=== PATIENT | male | born 1975 | race Caucasian/White ===

== ENCOUNTER 2022-04-04 10:37 | Emergency (ER) | payer BC, SELFPAY ==
[2022-04-04 10:40] VITALS: BP 143/90; PULSE 69; RESP 18; TEMP 36.5; O2SAT 97; BMI 28.7
--- NOTE | 2022-04-04 10:58 | EKG12_ITS ---
Test Reason : ABDOMINAL PAIN Blood Pressure : / mmHG Vent. Rate : 063 BPM Atrial Rate : 063 BPM P-R Int : 158 ms QRS Dur : 082 ms QT Int : 410 ms P-R-T Axes : 037 047 039 degrees QTc Int : 419 ms Normal sinus rhythm Nonspecific T wave abnormality Abnormal ECG Confirmed by ANGELINA NEVAREZ, ANILA ([id number]), health editor AMARA ABILEY ([id number]) on 04/05/2022 9:26:37 AM Referred By: Confirmed By:ANILA ALFARO MD
--- NOTE | 2022-04-04 10:59 | EX.ED.DYSGE1 ---
HPI History of Present Illness Chief Complaint: Abd Pain Informant: patient Onset/Context/Timing Onset: Days (5 days) Timing: Continuous Current Severity: Moderate Maximum Severity: Moderate Narrative Narrative: Patient presents with bandlike pain across the upper abdomen/lower ribs. He states pain started late Thursday evening. He was seen at the emergency room in [place] on Thursday. He states his pain started in the epigastric area, up through his chest and into his jaw. He states that his cardiac work-up was unremarkable. The reportedly was a small elevation in his lipase. He had an ultrasound of the right upper quadrant that showed some inflammation. He was started on pantoprazole. He followed up with Dr. Wren this morning and due to continued pain was sent to the emergency room due to concern for pancreatitis. Patient denies having fever or chills. He will occasionally have pain radiating into his back. He denies change in pain with p.o. diet. PFSH PFSH Medical History no medical history no medical history Home Medications pantoprazole 20 mg tablet,delayed release 20 mg PO DAILY 04/04/22 [History Last Taken Unknown] sucralfate 1 gram tablet (Carafate) 1 g PO BID #30 tabs 04/04/22 [Rx Last Taken Unknown] Allergy/AdvReac Type Severity Reaction Status Date / Time bee venom protein (honey bee) AdvReac Other Verified 04/04/22 10:39 Surgical History no surgical history Social History Smoking Status: Never smoker ROS ROS ED Constitutional Constitutional ED: Denies chills or fever(s) Eyes Eyes: Denies change in vision or discharge from eye(s) ENT ENT ED: Denies discharge from eye(s), rhinorrhea or sore throat Cardiovascular Cardiovascular: Denies chest pain or palpitations Respiratory/Chest Respiratory/Chest: Denies cough or dyspnea Gastrointestinal Gastrointestinal: Reports abdominal pain; Denies diarrhea, nausea or vomiting Genitourinary Genitourinary ED: Denies dysuria Musculoskeletal Musculoskeletal: Denies back pain or extremity pain Integumentary Denies Abrasions or rash Neurologic Neurologic: Denies headache(s) or weakness Psychiatric Psychiatric: Denies anxiety or depression Allergic/Immunologic Allergic/Immunologic ED: Denies lip swelling or urticaria EXAM Physical Exam Const Vital Signs: 04/04/22 10:40 04/04/22 12:38 04/04/22 13:49 Temperature 97.7 F L Temperature Source Temporal Pulse Rate 69 56 L 54 L Respiratory Rate 18 18 14 Blood Pressure 143/90 H 119/81 H 116/77 Blood Pressure Mean 107 93 90 Pulse Ox 97 97 98 Oxygen Delivery Method Room Air Room Air Room Air Positive well nourished and well developed General Appearance ED: well developed HEENT Reports normocephalic and head/scalp atraumatic Eyes PERRL and EOMs intact bilaterally Neck supple Chest Wall inspection of chest normal and palpation of chest normal Resp normal respiratory effort and clear to auscultation bilaterally Cardio regular rate and regular rhythm GI GI Narrative: Hypoactive bowel sounds. Tenderness to palpation across the upper abdomen. No guarding or rebound. Palpation: soft Extremity normal to inspection Neuro oriented x3 and no sensory deficits noted Sensorium / Orientation: alert Motor Exam: strength 5/5 throughout Psych mental status grossly normal Skin no rashes or lesions noted MDM MDM MDM Narrative Medical decision making narrative: Patient given morphine and Zofran for pain and nausea control. IV fluids given. EKG and lab work ordered. Lab Data Attestation: I reviewed the patient's lab results. Labs: Laboratory Results - last 24 hr 04/04/22 04/04/22 10:53 10:53 WBC 4.7 RBC 5.52 Hgb 17.0 H Hct 47.3 MCV 85.7 MCH 30.8 MCHC 35.9 RDW Std Deviation 38.3 RDW Coeff of Natalia 12.3 Plt Count 166 MPV 11.9 Immature Gran % (Auto) 0.400 Neut % (Auto) 58.0 Lymph % (Auto) 29.4 [place] % (Auto) 8.1 Eos % (Auto) 3.0 Baso % (Auto) 1.1 H Absolute Neuts (auto) 2.7 Absolute Lymphs (auto) 1.38 Nucleated RBC % 0 Sodium 139 Potassium 3.7 Chloride 106 Carbon Dioxide 28.0 Anion Gap 5 BUN 12 Creatinine 1.27 Estim Creat Clear Calc 79.77 Est GFR (MDRD) Af Amer 78 Est GFR (MDRD) Non-Af 65 BUN/Creatinine Ratio 9.4 L Glucose 104 Calcium 8.8 Total Bilirubin 0.80 Direct Bilirubin 0.15 AST 19 ALT 39 Alkaline Phosphatase 66 Troponin I High Sens 15 Total Protein 7.3 Albumin 4.0 Globulin 3.3 Lipase 145 Radiography Diagnostic Testing: Clinical Impression(s) from Imaging Studies Abdomen/Pelvis CT 04/04/22 11:49 IMPRESSION: Findings suggestive of bibasilar atelectasis. Calcified granuloma in the right lower lobe. Electronically Signed: Joseluis Magana MD at 14:04 EDT , EKG Initial EKG: Attestation: I personally reviewed and interpreted this EKG as follows: Interpretation: Sinus Rhythm (Sinus at 63 with no acute ischemia.) Treatment and Re-Evaluation Narrative: CBC unremarkable other than hemoglobin concentrated at 17. Chemistry studies normal. LFTs and lipase normal. Troponin normal. CT scan of the abdomen and pelvis with p.o. and IV contrast obtained. This is also unremarkable. There is a calcified granuloma noted in the right lower lobe of the lung. Test results discussed with patient and at bedside. Given these abnormal findings and location of pain I am suspicious that he has gastritis or possibly an ulcer. He is already on pantoprazole. I will add Carafate and refer him to GI. Return instructions provided. Discharge Plan Triage Chief Complaint: Abd Pain ED Provider: Arielle Peralta Dx/Rx/DC Orders Clinical Impression: Gastritis, Epigastric pain Instructions: ED Gastritis (Adult), ED Epigastric Pain Uncertain Cause Prescriptions: New sucralfate [Carafate] 1 gram tablet 1 g PO BID Qty: 30 0RF No Action pantoprazole 20 mg tablet,delayed release (DR/EC) 20 mg PO DAILY Primary Care Provider: Chance Wren Referrals: Juan Manuel Dennis DO [Med Staff - Active Staff] - 1-2 Weeks Chance Wren MD [Primary Care Provider] - Disposition Disposition: Home, Self Care
[2022-04-04] MEDS: Morphine 4 MG/ML Syringe IV (11:04)
[2022-04-04] MEDS: Ondansetron 4 MG/2 ML Vial IV (11:04)
[2022-04-04] MEDS: 0.9% Normal Saline 1,000 ML 150 ML IV (11:14)
[2022-04-04 11:25] LABS: Absolute Lymphocyte Count 1.38 X10^3/uL (0.83-4.51); Absolute Neutrophil Count 2.7 X10^3/uL (2.0-7.7); Basophil# 0.05 X10^3/uL; Basophil% 1.1 % (0-1); Eosinophil# 0.14 X10^3/uL; Hematocrit 47.3 % (40-54); Lymphocyte # 1.38 X10^3/ul (0.83-4.51); Lymphocyte % 29.4 % (19-41); Mean Corp Hgb Conc 35.9 g/dL (32-36); Mean Corpuscular Hgb 30.8 pg (27.0-32.0); Mean Corpuscular Volume 85.7 fL (80-94); Mean Platelet Vol. 11.9 fl (6.2-12.0); Monocyte# 0.38 X10^3/uL; Monocyte% 8.1 % (0-10); NRBC Flagged by Analyzer 0 % (0-5); Neutrophil # 2.73 X10^3/uL (2.7-7.7); Platelet Count 166 K/mm3 (150-450); RBC Distribution Width CV 12.3 % (11.6-14.6); RBC Distribution Width SD 38.3 fl (35.1-43.9); Red Blood Count 5.52 M/mm3 (4.6-6.2); White Blood Count 4.7 K/mm3 (4.4-11.0)
[2022-04-04 11:33] LABS: AST(SGOT) 19 U/L (15-37); Alanine Aminotransfer ALT/SGPT 39 U/L (16-61); Alkaline Phosphatase 66 U/L (45-117); Anion Gap 5 (5-15); BUN 12 mg/dL (7-18); BUN/Creat Ratio 9.4 RATIO (10-20); Bilirubin, Direct 0.15 mg/dL (0.00-0.30); Calcium,Total 8.8 mg/dL (8.5-10.1); Chloride 106 mmol/L (98-107); Creatinine, Serum 1.27 mg/dL (0.70-1.30); EST Glomerular Filtration Rate 65 mL/min (>60); Est Glom Filt Rate - Afr Amer 78 mL/min (>60); Estimated Creatinine Clearance 79.77 ml/min; Globulin 3.3 g/dL (2.2-4.2); Glucose 104 mg/dL (74-106); Lipase 145 U/L (73-393); Potassium 3.7 mmol/L (3.5-5.1); Protein, Total 7.3 g/dL (6.4-8.2); Sodium Level 139 mmol/L (136-145); Troponin-I HS 15 pg/mL (3.0-78.0)
--- NOTE | 2022-04-04 11:49 | CT_ITS ---
STUDY: CT ABDOMEN AND PELVIS WITH CONTRAST REASON FOR EXAM: Male, 46 years old. Upper abdominal pain -- IV PO Contrast RADIATION DOSAGE (If Supplied By Facility): CTDIvol = ( 14.39 ) mGy, DLP = ( 892.92 ) mGycm TECHNIQUE: Transaxial images were obtained from the dome of the diaphragm to the symphysis pubis without oral contrast. IV 100mL Isovue-300 was administered. Sagittal and coronal images were reconstructed. Individualized dose optimization techniques were used for this CT. COMPARISON: None. FINDINGS: There is a 1.5 cm calcified granuloma in the peripheral lateral aspect of the right lower lobe. Increased markings at the lung bases suggestive of bibasilar atelectasis. The visualized portions of the heart are within normal limits. There is decreased attenuation of the liver consistent with steatosis. Normal gallbladder and extrahepatic biliary system. Normal spleen. Normal pancreas. Normal bilateral adrenal glands. Normal right kidney. Normal left kidney. Normal visualized stomach. Normal small intestine. Normal colon. The appendix is visualized and appears normal. Normal abdominal aorta. Normal inferior vena cava. Normal retroperitoneum. Normal urinary bladder. There are prostatic calcifications. There is a small umbilical hernia containing fat. Straightening of the normal lumbar lordosis. CT/Abdomen/Pelvis WITH Contrast IMPRESSION: Findings suggestive of bibasilar atelectasis. Calcified granuloma in the right lower lobe. Electronically Signed: Joseluis Magana MD at 14:04 EDT ,
[2022-04-04 12:38] VITALS: BP 119/81; PULSE 56; RESP 18; O2SAT 97
[2022-04-04 13:49] VITALS: BP 116/77; PULSE 54; RESP 14; O2SAT 98
[2022-04-04 14:14] VITALS: BP 121/80; PULSE 54; RESP 15; O2SAT 100
== END 2022-04-04 14:24 | disposition home or self-care (01) ==
PROVIDERS: Emergency Provider Emergency Medicine; PCP Internal Medicine; Visit Provider Emergency Medicine
DX: K29.70 Gastritis, unspecified, without bleeding (principal); R10.13 Epigastric pain; Z79.899 Other long term (current) drug therapy
CPT/HCPCS: 74177; 80048; 80076; 83690; 84484; 85025; 93005; 96374; 96375; 99284; J7030; Q9967; A4216; J2405

== ENCOUNTER → 2022-05-05 | Outpatient (CLI) | payer BC, SELFPAY ==
--- NOTE | 2022-05-05 09:33 | US_ITS ---
STUDY: ABDOMINAL ULTRASOUND - ELASTOGRAPHY REASON FOR VISIT: Male, 46 years old. Fatty infiltration of the liver. TECHNIQUE: Liver stiffness measurements were obtained on a SolFocus RS 85 ultrasound machine using a CA 1-7 probe following the SRU guidelines. 3 measurements were obtained using a 2-D-SWE method. The IQR/M was 11% suggesting a quality data set. TECHNICAL QUALITY: Adequate. COMPARISON: Comparison is made with prior study done earlier in the day. FINDINGS: Liver: Fatty infiltration of the liver. Median liver stiffness measured 12 kPa. US/Elastography Parenchyma/Organ IMPRESSION: Liver stiffness measures 12 kPa compatible with F2-F3 (Mild to moderate liver fibrosis) Metavir score. Electronically Signed: Joseluis Magana MD at 15:27 EST ,
--- NOTE | 2022-05-05 09:33 | US_ITS ---
STUDY: ABDOMINAL ULTRASOUND - RIGHT UPPER QUADRANT REASON FOR VISIT: Male, 46 years old fatty liver, elastography TECHNIQUE: Ultrasound evaluation of the right upper quadrant was performed with real-time and static subramanian-scale imaging. TECHNICAL QUALITY: Adequate. COMPARISON: None. FINDINGS: Liver: The liver measures 16.8 cm. There is increased echogenicity consistent with fatty infiltration. Focal area of fatty sparing is seen in the region of the gallbladder fossa. The bile ducts are within normal limits. There is hepatic color flow. The direction of portal flow is hepatopetal. There is no demonstrated mass lesion. Gallbladder: Normal distended gallbladder. The gallbladder wall measures 1.5 mm. There is a negative sonographic Boyer''s sign. There is no pericholecystic fluid. There are no gallstones. Common Bile Duct (C.B.D.): The common bile duct measures 2.1 mm. Pancreas: Normal size of the head, body and tail of the pancreas. There is increased echogenicity of the pancreas. There is no demonstrated pancreatic mass or cyst. Right Kidney: Normal size of the right kidney. The right kidney measures 11.1 cm x 5.6 x 6.7 cm. Normal renal cortex. The right cortex measures 1.7 cm. There is a 7 mm x 7 mm x 5 mm cyst in the lateral midportion of the kidney. There is no right hydronephrosis. US/Abdomen Limited IMPRESSION: Fatty infiltration of the liver with focal fatty sparing in the region of the pericholecystic region. Electronically Signed: Joseluis Magana MD at 15:25 EST ,
== END | disposition home or self-care (01) ==
LOC: US 09:33
PROVIDERS: PCP Internal Medicine; Visit Provider Nurse Practitioner Adult Health
DX: K76.0 Fatty (change of) liver, not elsewhere classified (principal)
CPT/HCPCS: 76705; 76981

== ENCOUNTER 2022-06-17 12:39 | Day surgery (SDC) | payer BC, SELFPAY ==
[2022-06-17] VITALS (7 sets, daily range): BP systolic 107–144; BP diastolic 71–92; PULSE 65–74; RESP 16–18; TEMP 35.9–36.3; O2SAT 97–98; BMI 29.1
[2022-06-17] MEDS: Lactated Ringers 1,000 ML 15 ML IV (13:23)
--- NOTE | 2022-06-17 14:00 | EGD_PTH ---
PATIENT: MAURY ARRIAGA LOC: EN U#:[id number] AGE/SX: 46/M ROOM: RE06/17/[address]: Dr. Juan Manuel Dennis DO : 1975 BED: DIS: 06/17/2022 SPEC #: [id number] RECD: 06/17/22 16:43 STATUS: ADE MARY #: [id number] HAZEL: 06/17/22 14:[address]: Juan Manuel Dennis DEPT: SURGICAL PATHOLOGY RECD BY: Gay Hanks ENTERED: 06/18/22 07:27 SP TYPE: EGD BIOPSY OT DR: Chance Wren MD Tissues: A - Duodenum, NOS B - Pyloric sphincter C - Esophagus, NOS D - Gastric mucous membrane E - Ileum, NOS F - COLON BIOPSY Procedures: Special Stain Group II Surgery Specimen Level IV Alcian Blue/PAS (control) HEADER OPERATION: Colonoscopy, EGD ([facility]) with biopsies PRE-OP DIAGNOSIS: Epigastric pain, fatty liver TISSUE SUBMITTED: A ? Duodenum biopsy, B ? Pyloric sphincter biopsy, C ? Distal esophagus biopsy, D ? Gastric body biopsy, E ? Terminal ileum biopsy, F ? Random colon biopsy MICROSCOPIC DIAGNOSIS A. Duodenum, biopsy: No pathologic change. B. Pyloric sphincter, biopsy: Fragments of benign gastric mucosa with minimal chronic inflammation. C. Distal esophagus, biopsy: Gastric mucosa with chronic inflammation. No evidence of goblet cell metaplasia. See comment. D. Gastric body, biopsy: Mild chronic inflammation. See comment. E. Terminal ileum, biopsy: No pathologic change. F. Colon, random biopsy: No pathologic change. AM:sarah 06/19/2022 COMMENT C. Alcian blue/PAS stain with matched control supports the above diagnosis. D. The results of immunohistochemistry for Helicobacter pylori will be reported separately ([id number]). MICROSCOPIC DESCRIPTION Slides are reviewed. GROSS DESCRIPTION A - Received in fixative is one container labeled with the patient's name and designated duodenum biopsy. The specimen consists of two irregular fragments of light tabares soft tissue that in aggregate measure 0.5 x 0.3 x 0.1 cm. The specimen is totally submitted in one cassette. B - Received in fixative is one container labeled with the patient's name and designated pyloric sphincter biopsy. The specimen consists of two irregular fragments of light tabares soft tissue that in aggregate measure 0.5 x 0.2 x 0.1 cm. The specimen is totally submitted in one cassette. C - Received in fixative is one container labeled with the patient's name and designated distal esophagus biopsy. The specimen consists of one irregular fragment of light tabares soft tissue that measures 0.3 x 0.3 x 0.1 cm. The specimen is totally submitted in one cassette. D - Received in fixative is one container labeled with the patient's name and designated gastric body biopsy. The specimen consists of two irregular fragments of light tabares soft tissue that in aggregate measure 0.6 x 0.2 x 0.1 cm. The specimen is totally submitted in one cassette. E - Received in fixative is one container labeled with the patient's name and designated terminal ileum biopsy. The specimen consists of multiple irregular fragments of light tabares soft tissue that in aggregate measure 1 x 0.5 x 0.1 cm. The specimen is totally submitted in one cassette. F - Received in fixative is one container labeled with the patient's name and designated random colon biopsy. The specimen consists of multiple irregular fragments of light tabares soft tissue that in aggregate measure 1.5 x 0.5 x 0.1 cm. The specimen is totally submitted in one cassette. / AM:sarah 06/18/2022 TC:3 CPT: 61339 x6, 71810
--- NOTE | 2022-06-17 14:00 | IMM_PTH ---
PATIENT: MAURY ARRIAGA LOC: EN U#:[id number] AGE/SX: 46/M ROOM: RE06/17/[address]: Dr. Juan Manuel Dennis DO : 1975 BED: DIS: 06/17/2022 SPEC #: [id number] RECD: 06/18/22 09:28 STATUS: ADE RELorenzo #: [id number] HAZEL: 06/17/22 14:[address]: Juan Manuel Dennis DEPT: IMMUNOHISTOCHEMISTRY RECD BY: Aminata Lange ENTERED: 06/18/22 09:29 SP TYPE: IMMUNO OTHR DR: Chance Wren MD Tissues: D - Stomach, NOS Procedures: H Pylori (initial) PHYSICIAN & INSTITUTION [place] [id number] SPECIMEN INFORMATION: Tissue Source: D ? Gastric body biopsy Clinical Info: Epigastric pain, fatty liver Specimen Number: [id number] CPT code: 78923 METHODOLOGY: Deparaffinized sections of prefer/formalin-fixed tissue or PAP/DQ stained slides are incubated with monoclonal/polyclonal antibodies/oligonucleotide probes. Localization is made via biotin free immunoperoxidase method. Appropriate controls are performed and reacted as expected. Results on target cell population are indicated in the following table: RESULTS: ANTIBODY / CLONE RESULT Block D H Pylori (polyclonal) negative These tests were developed and their performance characteristics determined by [facility]. They may not have been cleared or approved by the U.S. Food and Drug Administration. The FDA has determined that such clearance or approval is not necessary. The above immunohistochemical/dualISH markers are ordered and reviewed by the Pathologist. INTERPRETATION: D. Gastric body, biopsy: Negative for Helicobacter pylori organisms. AM:sarah 06/19/2022
--- NOTE | 2022-06-17 14:17 | PCM.HP.BLA ---
History and Physical Date of Admission: 06/17/22 46 M who presents to the office today for appt to establish after being seen in ED for epigastric pain. He went to [facility] ED on 04/04/22 for upper abdominal pain. He had been seen on 03/31/22 for the epigastric pain that radiated to the chest and jaw at [facility] ED. They ruled out cardiac issue. At [facility] he had RUQ US which showed fatty liver; labs: plts 139 low, lipase slightly high. He was started on pantoprazole then. On 04/04/22 he had f/u with PCP Dr Wren, since he had ongoing abd pain that radiated through to the back he was referred to ED for possible pancreatitis. At [facility] he had CT abd which was unremarkable, lipase was normal. They added sucralfate. He hasn't had recurrence of the pain since then. Hx of mild acid reflux, usually only triggered by spicy food, and resolved with TUMS, had never needed any stronger med for it. No nausea, vomiting, dysphagia. Bowels are regular, no diarrhea, contstipation, melena, hematochezia. Weight is stable. He gets migraines, takes prn iburofen and excedrin ROS Const Constitutional: No fatigue ENT ENT: No difficulty swallowing Gastro GI: Positive for abdominal pain, bloating, heartburn and excessive flatus; No belching, change in bowel habits, change in stool character, coffee ground emesis, constipation, cramping, diarrhea, difficulty swallowing, feeling full early, incontinent of stools, Vomiting blood/hematemesis, Blood in stool, loose stools, Black,tarry stools, nausea/dyspepsia, pain with swallowing, vomiting or other Musc Musculoskeletal: Positive for joint pain and stiffness; No back pain Skin Skin: No yellowing of the eye or itchy eyes Psych Psychiatric: No anxiety and No depression Endo Endocrine: No fatigue Aller/Imm Allergy/Immunologic: No itchy eyes Allen/Lymp Hematologic/Lymphatic: No easy bleeding or easy bruising Exam Const General: cooperative, healthy appearing and comfortable Nutritional Appearance: average body habitus Orientation: alert, awake and oriented x3 HENMT Head: normal to inspection Eyes General: appearance normal, both eyes and all related structures Resp Effort & Inspection: normal respiratory effort GI Inspection: normal to inspection Quality Reporting Tobacco Screening ([facility] 138) Smoking Status: Never smoker Assessment and Plan Assessment and Plan (1) Epigastric pain: ?Status:?Acute ?Plan: Continue pantoprazole, rx sent for 40 mg QAM, and finish the course of sucralfate Schedule EGD to eval for esophagitis, Guillaume's, hiatal hernia, gastritis, PUD Will also get screening colonoscopy (2) Fatty liver: ?Status:?Acute ?Plan: Get liver elastography, will call pt with result and any recommendations FIB-4 0.84 which excludes advanced fibrosis ? ? ? Orders: Orders Abdomen Limited Today K76.0 - Fatty (change of) liver, not elsewhere classified ? Elastography Parenchyma/Organ Today K76.0 - Fatty (change of) liver, not elsewhere classified ? Medications: New pantoprazole 40 mg? PO DAILY 90 tabs 1RF ? ? Discontinued pantoprazole ?? Discontinued Reason:? Order Changed 20 mg? PO DAILY ? ? I have examined the patient and the H&P has been reviewed. There are no clinical changes since date of exam.
--- NOTE | 2022-06-17 15:23 | OP.EGD_ITS ---
Patient Name: Oumar Tanner Procedure Date: 06/17/2022 2:48 PM Date of : 1975 Age: 46 Procedure: Upper GI endoscopy Indications: Epigastric abdominal pain Providers: Juan Manuel Dennis DO Medicines: Monitored Anesthesia Care Patient Profile: This is a 46 year old male. Refer to note in patient chart for documentation of history and physical. Patient has symptoms of acute abdominal cramping and acute epigastric abdominal pain. Complications: No immediate complications. Procedure: Pre-Anesthesia Assessment: - Prior to the procedure, a History and Physical was performed, and patient medications and allergies were reviewed. The risks and benefits of the procedure and the sedation options and risks were discussed with the patient. All questions were answered and informed consent was obtained. Patient identification and proposed procedure were verified by the physician in the pre-procedure area. Mental Status Examination: alert and oriented. Respiratory Examination: clear to auscultation. CV Examination: normal. Prophylactic Antibiotics: The patient does not require prophylactic antibiotics. Prior Anticoagulants: The patient has taken no previous anticoagulant or antiplatelet agents. ASA Grade Assessment: II - A patient with mild systemic disease. After reviewing the risks and benefits, the patient was deemed in satisfactory condition to undergo the procedure. The anesthesia plan was to use monitored anesthesia care (MAC). Immediately prior to administration of medications, the patient was re-assessed for adequacy to receive sedatives. The heart rate, respiratory rate, oxygen saturations, blood pressure, adequacy of pulmonary ventilation, and response to care were monitored throughout the procedure. The physical status of the patient was re-assessed after the procedure. After obtaining informed consent, the endoscope was passed under direct vision. Throughout the procedure, the patient's blood pressure, pulse, and oxygen saturations were monitored continuously. The pediatric colonoscope was introduced through the mouth, and advanced to the second part of duodenum. The upper GI endoscopy was accomplished without difficulty. The patient tolerated the procedure well. Scope In: 2:57:38 PM Scope Out: 3:01:18 PM Total Procedure Duration Time 0 hours 3 minutes 40 seconds Findings: The Z-line was irregular and was found 39 cm from the incisors. Biopsies were taken with a cold forceps for histology. Verification of patient identification for the specimen was done. Estimated blood loss was minimal. Patchy mild inflammation characterized by erythema was found in the gastric body. Biopsies were taken with a cold forceps for histology. Estimated blood loss: none. Patchy mildly erythematous mucosa without active bleeding and with no stigmata of bleeding was found in the duodenal bulb. Impression: - Z-line irregular, 39 cm from the incisors. Biopsied. - Gastritis. Biopsied. - Erythematous duodenopathy. Recommendation: - Discharge patient to home. - Resume previous diet. - Continue present medications. - Await pathology results. Procedure Code(s): --- Professional --- 63939, Esophagogastroduodenoscopy, flexible, transoral; with biopsy, single or multiple CPT copyright 2017 [employer]. All rights reserved. The codes documented in this report are preliminary and upon respiratory care specialist review may be revised to meet current compliance requirements. Juna Manuel Dennis DO 06/17/2022 3:22:54 PM This report has been signed electronically. Number of Addenda: 0 Note Initiated On: 06/17/2022 2:48 PM
--- NOTE | 2022-06-17 15:23 | OP.CCLET_ITS ---
06/17/2022 Chance Wren Md Re : Upper GI endoscopy procedure for Oumar Tanner Dear [place] This procedure was performed on Friday, June 17, 2022. My impressions and recommendations are as follows: Impressions : - Z-line irregular, 39 cm from the incisors. Biopsied. - Gastritis. Biopsied. - Erythematous duodenopathy. Recommendations : - Discharge patient to home. - Resume previous diet. - Continue present medications. - Await pathology results. My findings are described in the full procedure note, which is enclosed. If I can be of further assistance, please feel free to contact me at . Sincerely, Juan Manuel Dennis, 06/17/2022 3:22:54 PM This report has been signed electronically.
--- NOTE | 2022-06-17 15:26 | OP.CCLET_ITS ---
06/17/2022 Chance Wren Md Re : Colonoscopy procedure for Oumar Tanner [place] This procedure was performed on Friday, June 17, 2022. My impressions and recommendations are as follows: Impressions : - Congested mucosa in the terminal ileum. Biopsied. - Congested mucosa at the splenic flexure and at the hepatic flexure. Biopsied. Recommendations : - Discharge patient to home. - Resume previous diet. - Continue present medications. - Await pathology results. - Repeat colonoscopy in 10 years for screening purposes. My findings are described in the full procedure note, which is enclosed. If I can be of further assistance, please feel free to contact me at . Sincerely, Juan Manuel Dennis, 06/17/2022 3:25:47 PM This report has been signed electronically.
--- NOTE | 2022-06-17 15:26 | OP.COLON_ITS ---
Patient Name: Oumar Tanner Procedure Date: 06/17/2022 3:01 PM Date of : 1975 Age: 46 Procedure: Colonoscopy Indications: Screening for colorectal malignant neoplasm Providers: Juan Manuel Dennis DO Medicines: Monitored Anesthesia Care Patient Profile: This is a 46 year old male. Refer to note in patient chart for documentation of history and physical. Patient has symptoms of acute abdominal cramping and acute epigastric abdominal pain. Last Colonoscopy: none. The patient's first colonoscopy is today. Complications: No immediate complications. Procedure: Pre-Anesthesia Assessment: - Prior to the procedure, a History and Physical was performed, and patient medications and allergies were reviewed. The risks and benefits of the procedure and the sedation options and risks were discussed with the patient. All questions were answered and informed consent was obtained. Patient identification and proposed procedure were verified by the physician in the pre-procedure area. Mental Status Examination: alert and oriented. Respiratory Examination: clear to auscultation. CV Examination: normal. Prophylactic Antibiotics: The patient does not require prophylactic antibiotics. Prior Anticoagulants: The patient has taken no previous anticoagulant or antiplatelet agents. ASA Grade Assessment: II - A patient with mild systemic disease. After reviewing the risks and benefits, the patient was deemed in satisfactory condition to undergo the procedure. The anesthesia plan was to use monitored anesthesia care (MAC). Immediately prior to administration of medications, the patient was re-assessed for adequacy to receive sedatives. The heart rate, respiratory rate, oxygen saturations, blood pressure, adequacy of pulmonary ventilation, and response to care were monitored throughout the procedure. The physical status of the patient was re-assessed after the procedure. After I obtained informed consent, the scope was passed under direct vision. Throughout the procedure, the patient's blood pressure, pulse, and oxygen saturations were monitored continuously. The colonoscope was introduced through the anus and advanced to the terminal ileum. The colonoscopy was performed without difficulty. The patient tolerated the procedure well. The quality of the bowel preparation was good. Scope In: 3:00:14 PM Scope Withdrawal Time 0 hours 8 minutes 23 seconds Scope Out: 3:15:42 PM Total Procedure Duration Time 0 hours 15 minutes 28 seconds Findings: The perianal and digital rectal examinations were normal. A patchy area of the terminal ileum was congested. Biopsies were taken with a cold forceps for histology. Verification of patient identification for the specimen was done. Estimated blood loss was minimal. An area of mildly congested mucosa was found at the splenic flexure and at the hepatic flexure. Biopsies were taken with a cold forceps for histology. Verification of patient identification for the specimen was done. Estimated blood loss was minimal. Impression: - Congested mucosa in the terminal ileum. Biopsied. - Congested mucosa at the splenic flexure and at the hepatic flexure. Biopsied. Recommendation: - Discharge patient to home. - Resume previous diet. - Continue present medications. - Await pathology results. - Repeat colonoscopy in 10 years for screening purposes. Procedure Code(s): --- Professional --- 86989, Colonoscopy, flexible; with biopsy, single or multiple CPT copyright 2017 [employer]. All rights reserved. The codes documented in this report are preliminary and upon die caster review may be revised to meet current compliance requirements. Juan Manuel Dennis DO 06/17/2022 3:25:47 PM This report has been signed electronically. Number of Addenda: 0 Note Initiated On: 06/17/2022 3:01 PM
== END 2022-06-17 16:13 | disposition home or self-care (01) ==
LOC: EN 12:41 → AC 12:47
PROVIDERS: PCP Internal Medicine; Referring Provider Internal Medicine; Visit Provider Internal Medicine Gastroenterology
PROC: 0DJD8ZZ Inspection of Lower Intestinal Tract, Via Natural or Artificial Opening Endoscopic (ICD-10-PCS; CPT 45378; principal; 2022-06-17 13:55)
DX: Z12.11 Encounter for screening for malignant neoplasm of colon (principal); K29.20 Alcoholic gastritis without bleeding; K31.89 Other diseases of stomach and duodenum; K21.9 Gastro-esophageal reflux disease without esophagitis; K76.0 Fatty (change of) liver, not elsewhere classified; R10.13 Epigastric pain; Z79.899 Other long term (current) drug therapy; Z87.891 Personal history of nicotine dependence
CPT/HCPCS: 43239; 45380; 88305; 88313; 88342; J7120; J2405

== ENCOUNTER → 2022-07-01 | Outpatient (CLI) | payer BC, SELFPAY ==
[2022-07-01 10:14] LABS: Absolute Lymphocyte Count 1.66 X10^3/uL (0.83-4.51); Absolute Neutrophil Count 2.7 X10^3/uL (2.0-7.7); Basophil# 0.06 X10^3/uL; Basophil% 1.2 % (0-1); Eosinophil# 0.17 X10^3/uL; Eosinophils% 3.4 % (0-5); Hematocrit 49.4 % (40-54); Hemoglobin 17.1 g/dL (13.0-16.5); Lymphocyte # 1.66 X10^3/ul (0.83-4.51); Lymphocyte % 33.4 % (19-41); Mean Corp Hgb Conc 34.6 g/dL (32-36); Mean Corpuscular Hgb 29.9 pg (27.0-32.0); Mean Corpuscular Volume 86.4 fL (80-94); Mean Platelet Vol. 12.4 fl (6.2-12.0); Monocyte# 0.37 X10^3/uL; Monocyte% 7.4 % (0-10); NRBC Flagged by Analyzer 0 % (0-5); Neutrophil # 2.68 X10^3/uL (2.7-7.7); Platelet Count 190 K/mm3 (150-450); RBC Distribution Width CV 12.3 % (11.6-14.6); Red Blood Count 5.72 M/mm3 (4.6-6.2)
[2022-07-01 10:31] LABS: Hemoglobin A1c 5.3 % (3.8-5.6)
[2022-07-01 10:39] LABS: International Normalized Ratio 1.2; Prothrombin Time (Protime)PT. 14.5 SECONDS (11.7-14.9)
[2022-07-01 11:06] LABS: ALB/GLOB Ratio 1.2 RATIO (0.9-2.4); AST(SGOT) 23 U/L (15-37); Alanine Aminotransfer ALT/SGPT 52 U/L (16-61); Albumin, Serum 4.2 g/dL (3.2-5.0); Alkaline Phosphatase 69 U/L (45-117); Anion Gap 7 (5-15); BUN 13 mg/dL (7-18); BUN/Creat Ratio 10.1 RATIO (10-20); CRP < 2.90 mg/L (0.0-3.0); Chloride 106 mmol/L (98-107); Creatinine, Serum 1.29 mg/dL (0.70-1.30); EST Glomerular Filtration Rate 64 mL/min (>60); Est Glom Filt Rate - Afr Amer 77 mL/min (>60); Ferritin 232 ng/mL (26-388); Globulin 3.5 g/dL (2.2-4.2); Glucose 112 mg/dL (74-106); LDH 168 U/L (87-241); Potassium 3.7 mmol/L (3.5-5.1); Protein, Total 7.7 g/dL (6.4-8.2); Sodium Level 140 mmol/L (136-145)
[2022-07-01 11:20] LABS: HIV - WCH Non-Reactive (Nonreactive)
[2022-07-01 11:33] LABS: Erythrocyte Sedimentation Rate 3 mm/hr (0-20)
[2022-07-02 16:09] LABS: Anti-Centromere B Ab <0.2 AI (0.0-0.9); Anti-Chromatin <0.2 AI (0.0-0.9); Anti-Jo <0.2 AI (0.0-0.9); Anti-Scleroderma-70 AB <0.2 AI (0.0-0.9); RNP Ab 0.3 AI (0.0-0.9); SJOGREN'S Anti-SS-A test < 0.2 AI (0.0-0.9); SJOGREN'S Anti-SS-B test < 0.2 AI (0.0-0.9); Smith Ab <0.2 AI (0.0-0.9)
[2022-07-02 16:26] LABS: Anti-Mitochondrial AB <20.0 Units (0.0-20.0); Anti-dsDNA Ab <1 IU/mL (0-9)
[2022-07-03 07:08] LABS: Angiotensin Convert Enzyme 73 U/L (14-82); Cytoplasmic Ab (C-ANCA) <1:20 titer (Neg:<1:20); HEPATITIS B SURFACE AG Negative (Negative); Hep C Antibodies <0.1 s/co ratio (0.0-0.9); Hepatitis A IgM Antibody Negative (Negative); Hepatitis B Core AB IgM Negative (Negative)
[2022-07-03 18:47] LABS: AFP, Tumor Marker 13.1 ng/mL (0.0-6.9); Anti-Smooth Muscle ABS 7 Units (0-19); Copper, Serum or Plasma 104 ug/dL (69-132); Haptoglobin 103 mg/dL (23-355); Perinuclear Ab (P-ANCA) <1:20 titer (Neg:<1:20)
== END | disposition home or self-care (01) ==
LOC: LAB 09:16
PROVIDERS: PCP Internal Medicine; Referring Provider Nurse Practitioner Adult Health; Visit Provider Nurse Practitioner Adult Health
DX: K74.00 Hepatic fibrosis, unspecified (principal)
CPT/HCPCS: 36415; 80053; 80074; 82105; 82140; 82164; 82390; 82525; 82728; 83010; 83036; 83516; 83615; 85025; 85610; 85652; 86140; 86225; 86235; 86256; 86703

== ENCOUNTER → 2023-03-03 | Outpatient (CLI) | payer BC, SELFPAY ==
[2023-03-03 11:17] LABS: Erythrocyte Sedimentation Rate < 1 mm/hr (0-20)
[2023-03-03 11:19] LABS: Absolute Lymphocyte Count 1.18 X10^3/uL (0.83-4.51); Absolute Neutrophil Count 3.1 X10^3/uL (2.0-7.7); Basophil# 0.06 X10^3/uL; Basophil% 1.2 % (0-1); Eosinophils% 4.1 % (0-5); Hematocrit 46.4 % (40-54); Hemoglobin 15.4 g/dL (13.0-16.5); Lymphocyte # 1.18 X10^3/ul (0.83-4.51); Mean Corp Hgb Conc 33.2 g/dL (32-36); Mean Corpuscular Hgb 29.4 pg (27.0-32.0); Mean Corpuscular Volume 88.7 fL (80-94); Mean Platelet Vol. 12.1 fl (6.2-12.0); Monocyte# 0.35 X10^3/uL; Monocyte% 7.1 % (0-10); NRBC Flagged by Analyzer 0 % (0-5); Neutrophil # 3.09 X10^3/uL (2.7-7.7); Platelet Count 196 K/mm3 (150-450); RBC Distribution Width CV 12.5 % (11.6-14.6); RBC Distribution Width SD 40.8 fl (35.1-43.9); Red Blood Count 5.23 M/mm3 (4.6-6.2); White Blood Count 4.9 K/mm3 (4.4-11.0)
[2023-03-03 11:21] LABS: Ammonia < 10.0 umol/L (11-32)
[2023-03-03 11:22] LABS: International Normalized Ratio 1.2; Prothrombin Time (Protime)PT. 14.9 SECONDS (11.7-14.9)
[2023-03-03 11:39] LABS: AST(SGOT) 21 U/L (15-37); Alanine Aminotransfer ALT/SGPT 41 U/L (16-61); Albumin, Serum 3.6 g/dL (3.2-5.0); Alkaline Phosphatase 76 U/L (45-117); Anion Gap 2 (5-15); BUN 12 mg/dL (7-18); BUN/Creat Ratio 10.5 RATIO (10-20); CRP < 2.90 mg/L (0.0-3.0); Calcium,Total 8.6 mg/dL (8.5-10.1); Chloride 109 mmol/L (98-107); Creatinine, Serum 1.14 mg/dL (0.70-1.30); EST Glomerular Filtration Rate 73 mL/min (>60); Est Glom Filt Rate - Afr Amer 88 mL/min (>60); Globulin 3.6 g/dL (2.2-4.2); Glucose 110 mg/dL (74-106); LDH 160 U/L (87-241); Potassium 3.7 mmol/L (3.5-5.1); Protein, Total 7.2 g/dL (6.4-8.2); Sodium Level 142 mmol/L (136-145)
[2023-03-04 15:09] LABS: AFP, Tumor Marker 11.8 ng/mL (0.0-6.9); Cytoplasmic Ab (C-ANCA) <1:20 titer (Neg:<1:20); Perinuclear Ab (P-ANCA) <1:20 titer (Neg:<1:20)
== END | disposition home or self-care (01) ==
LOC: LAB 10:45
PROVIDERS: PCP Internal Medicine; Referring Provider Internal Medicine Gastroenterology; Visit Provider Internal Medicine Gastroenterology
DX: K76.0 Fatty (change of) liver, not elsewhere classified (principal); R77.2 Abnormality of alphafetoprotein; R76.8 Other specified abnormal immunological findings in serum
CPT/HCPCS: 36415; 80053; 82105; 82140; 83615; 85025; 85610; 85652; 86140; 86256

== ENCOUNTER → 2023-03-23 | Outpatient (CLI) | payer BC, SELFPAY ==
--- NOTE | 2023-03-23 09:41 | US_ITS ---
STUDY: ABDOMINAL ULTRASOUND - RIGHT UPPER QUADRANT; ELASTOGRAPHY REASON FOR VISIT: Male, 47 years old. Fatty infiltration of the liver. TECHNIQUE: Ultrasound evaluation of the right upper quadrant was performed with real-time and static subramanian-scale imaging. Point quantification shear wave elastography was performed ([employer]). TECHNICAL QUALITY: Adequate. COMPARISON: Comparison is made with prior study dated May 05, 2022. FINDINGS: Liver: The liver measures 16.1 cm. There is increased echogenicity consistent with fatty infiltration. The bile ducts are within normal limits. There is hepatic color flow. The direction of portal flow is hepatopetal. There is no demonstrated mass lesion. Median liver stiffness measured 11.6 kPa. Gallbladder: Normal distended gallbladder. The gallbladder wall measures 2.9 mm. There is a negative sonographic Boyer''s sign. There is no pericholecystic fluid. There are no gallstones. Common Bile Duct (C.B.D.): The common bile duct measures 3.1 mm. Pancreas: There is normal echogenicity of the visualized pancreas. There is no demonstrated pancreatic mass or cyst. Right Kidney: Normal size of the right kidney. The right kidney measures 11.4 cm x 4.6 cm x 7 cm. Normal renal cortex. The right cortex measures 1.9 cm. There is a 6 mm x 6 mm x 5 mm cyst in the right kidney. There is no right hydronephrosis. US/ABD Limited w/ Elastography IMPRESSION: 1. Liver stiffness measures 11.6 kPa compatible with F2-F3 (Mild to moderate liver fibrosis) Metavir score. Electronically Signed: Joseluis Magana MD at 9:40 EDT ,
== END | disposition home or self-care (01) ==
PROVIDERS: PCP Internal Medicine; Referring Provider Internal Medicine Gastroenterology; Visit Provider Internal Medicine Gastroenterology
DX: K76.0 Fatty (change of) liver, not elsewhere classified (principal); R77.2 Abnormality of alphafetoprotein; R76.8 Other specified abnormal immunological findings in serum
CPT/HCPCS: 76705; 76981